=== PATIENT | male | born 1975 | race African-American/Black ===

== ENCOUNTER 2019-07-25 19:05 | Emergency (ER) | payer MEDICAID ==
[~2019-07-25] VITALS: Ht 190.5 cm; Wt 109.9 kg
[2019-07-25 20:22] VITALS: BP 161/65
--- NOTE | 2019-07-25 20:44 | RAD ---
Study: CR CHEST PA LATERAL Indication: Cough. Comparison: None. Findings: No lobar consolidation, pleural effusion or pneumothorax. The cardia mediastinal silhouette is within normal limits for size. Mild symmetric prominence of the central vasculature. Impression: 1. No localized airspace infiltrate to suggest a typical pneumonia. 2. Mild symmetric prominence of the central vasculature which could be within the broad range of normal for this patient but recommend correlation for any symptoms or history of pulmonary hypertension. Electronically signed by: CHRISTIAN WYNNE MD (07/25/2019 8:41 PM) [id number]
--- NOTE | 2019-07-25 21:18 | PHYS DOC ---
Past Medical History Past Medical History: GERD Past Surgical History: No Surgical History Smoking Status: Never Smoker Alcohol Use: Rarely General Adult EDM: Chief Complaint: ASTHMA HPI: HPI: Patient is a 43 year old male with a history of acid reflux, seasonal allergies, possible asthma, who presents to the ED today complaining of shortness of breath for 3 months. Patient states she was seen by her own doctor and was started on albuterol treatments which have helped. He states symptoms still recur especially after exposure to certain environmental agents including tires. Patient reports during the lockdown he was staying with a girlfriend, his symptoms are better, when the lockdown ended he moved into his own house, he states symptoms started reoccurring, he states he tried cleaning the house including shampooing the carpets but the symptoms are still re-occurring. He reports he was using fdyo-vfi-zphfixe allergy medicine but realized one of the ingredients in the medicine could make him have palpitations. He states he occasionally has palpitation also after using nebulizer treatments. Patient denies any fever. He is requesting an asthma test in the ED Review of Systems: Review of Systems: Constitutional: Denies fever or chills. [] Eyes: Denies change in visual acuity. [] HENT: Denies nasal congestion or sore throat. [] Respiratory: Shortness of breath Cardiovascular: Denies chest pain or edema. [] GI: Denies abdominal pain, nausea, vomiting, bloody stools or diarrhea. [] : Denies dysuria. [] Musculoskeletal: Denies back pain or joint pain. [] Integument: Denies rash. [] Neurologic: Denies headache, focal weakness or sensory changes. [] Endocrine: Denies polyuria or polydipsia. [] Lymphatic: Denies swollen glands. [] Psychiatric: Denies depression or anxiety. [] Heart Score: Risk Factors: Risk Factors: DM, Current or recent (<one month) smoker, HTN, HLP, family history of CAD, obesity. Risk Scores: Score 0 - 3: 2.5% MACE over next 6 weeks - Discharge Home Score 4 - 6: 20.3% MACE over next 6 weeks - Admit for Clinical Observation Score 7 - 10: 72.7% MACE over next 6 weeks - Early Invasive Strategies Allergies: Allergies: Allergies Coded Allergies Type Severity Reaction Last Updated Verified naproxen Allergy Intermediate HIVES 07/25/19 Yes Physical Exam: PE: Constitutional: Well developed, well nourished, no acute distress, non-toxic appearance. [] HENT: Normocephalic, atraumatic, bilateral external ears normal, oropharynx moist, no oral exudates, nose normal. [] Eyes: PERRLA, EOMI, conjunctiva normal, no discharge. [] Neck: Normal range of motion, no tenderness, supple, no stridor. [] Cardiovascular:Heart rate regular rhythm, no murmur [] Lungs & Thorax: Bilateral breath sounds clear to auscultation [] Abdomen: Bowel sounds normal, soft, no tenderness, no masses, no pulsatile masses. [] Skin: Warm, dry, no erythema, no rash. [] Back: No tenderness, no CVA tenderness. [] Extremities: No tenderness, no cyanosis, no clubbing, ROM intact, no edema. [] Neurologic: Alert and oriented X 3, normal motor function, normal sensory function, no focal deficits noted. [] Psychologic: Affect normal, judgement normal, mood normal. [] Current Patient Data: Vital Signs: Vital Signs Date Time Temp Pulse Resp B/P (MAP) Pulse Ox O2 Delivery O2 Flow Rate FiO2 07/25/19 20:22 59 161/65 (97) 98 Room Air 07/25/19 19:37 99.0 20 99.0 EKG: EKG: [] Radiology/Procedures: Radiology/Procedures: []PROCEDURE: CHEST PA & LATERAL Study: CR CHEST PA LATERAL Indication: Cough. Comparison: None. Findings: No lobar consolidation, pleural effusion or pneumothorax. The cardia mediastinal silhouette is within normal limits for size. Mild symmetric prominence of the central vasculature. Impression: 1. No localized airspace infiltrate to suggest a typical pneumonia. 2. Mild symmetric prominence of the central vasculature which could be within the broad range of normal for this patient but recommend correlation for any symptoms or history of pulmonary hypertension. Electronically signed by: CHRISTIAN WYNNE MD (07/25/2019 8:41 PM) [id number] DICTATED and SIGNED BY: CHRISTIAN WYNNE MD DATE: 07/25/192040 Course & Med Decision Making: Course & Med Decision Making Pertinent Labs and Imaging studies reviewed. (See chart for details) This is a 43-year-old male patient presenting to the ED today complaining of shortness of breath for 3 months. Patient has history of seasonal allergies which seem to trigger his symptoms. His chest x-ray was negative for infiltrate or pneumonia. Noted for possible pulmonary hypertension. Patient has no previous history of hypertension, blood pressure was noted at 160s over 60. I spent an incredible amount of time talking to this patient to figure out what his realistic expectation on today's visit was. Patient is expecting us to do a test to diagnose him with asthma. He was seen by his own doctor a while back and was started on asthma treatments specifically breathing treatments but states they did not do any test to dx him with asthma. He is on yhyn-jzo-ggvjbos allergy medicine. Encourage patient to continue taking this medicine, OTC allergy medicine and prednisone for 5 days and gave him a pulmonary doctor for follow up and recommended allergy testing. He wanted somebody to follow-up for acid reflux. I gave him Dr. Mcclendon's number. His O2 sats have been 98% on room air. He is in no distress. He is actually a very well muscled exercise man. [employer] Disclaimer: [employer] Disclaimer: This electronic medical record was generated, in whole or in part, using a voice recognition dictation system. Departure Departure Impression: Primary Impression: Asthma Qualified Codes: J45.40 - Moderate persistent asthma, uncomplicated Additional Impression: Seasonal allergies Disposition: 01 HOME, SELF-CARE Condition: STABLE Referrals: NO PCP (PCP) MARE AGUILAR MD follow up for asthma JONATHAN MCCLENDON MD follow up in 1-2 weeks for acid reflex Patient Instructions: Allergies, Generic, Asthma, Adult Additional Instructions: You were evaluated in the emergency room, your chest x-ray was negative for pne umonia. Your oxygen saturation is very good at 98% on room air. We encourage you to continue taking xogq-mog-haxwdkx allergy medicine. We also put you on prednisone for 5 days and encourage you to continue doing breathing treatments at home as needed for asthma symptoms including shortness of breath and chest tightness. Her blood pressure is running slightly high in the 160s over 60. Normal blood pressure is less than 120/80. Follow-up with your primary care doctor for this. Continue to exercise as needed and tolerated. Scripts Albuterol Sulfate (Proventil Hfa) 6.7 Gm Hfa.aer.ad 1 PUFF INH PRN Q6HRS PRN for SHORTNESS OF BREATH, #1 INHALER Prov: DIPAK MONTEMAYOR APRN 07/25/19 Prednisone (PREDNISONE) 50 Mg Tablet 1 TAB PO DAILY, #5 TAB Prov: DIPAK MONTEMAYOR APRN 07/25/19 Justicifation of Admission Dx: Justifications for Admission: Justification of Admission Dx: N/A DIPAK MONTEMAYOR APRN Jul 25, 2019 21:18
[2019-07-25] MEDS ORDERED: PROVENTIL HFA6.7 G2 INH (21:26)
[2019-07-25] MEDS ORDERED: PRED50TA PO (21:26)
== END 2019-07-25 21:33 | disposition home or self-care (01) ==
LOC: ER 19:05
DX: J45.40 Moderate persistent asthma, uncomplicated (principal); K21.9 Gastro-esophageal reflux disease without esophagitis; Z88.5 Allergy status to narcotic agent
CPT/HCPCS: 71046; 99283

== ENCOUNTER 2019-07-31 12:49 | Emergency (ER) | payer MEDICAID ==
[~2019-07-31] VITALS: Ht 190.5 cm; Wt 107.0 kg
[~2019-07-31 12:49] MED LIST: PRED50TA PO; PROVENTIL HFA6.7 G2 INH
--- NOTE | 2019-07-31 13:12 | PHYS DOC ---
Past Medical History Past Medical History: GERD (BRANDON NGUYEN APRN) Past Surgical History: No Surgical History (BRANDON NGUYEN APRN) Smoking Status: Never Smoker Alcohol Use: Rarely (BRANDON NGUYEN APRN) General Adult EDM: Chief Complaint: Palpitations HPI: HPI: Patient is a 43 year old male presents to the emergency room for evaluation of palpitations and "racing heart rate". He reports symptoms last night while watching TV. States made him feel short of breath. He reports again today started having palpitations, denies chest pain or shortness of air. Denies current supplement use. States he feels like his "heart is tired". (BRANDON NGUYEN APRN) Review of Systems: Review of Systems: Constitutional: Denies fever or chills. [] Eyes: Denies change in visual acuity. [] HENT: Denies nasal congestion or sore throat. [] Respiratory: Denies cough or shortness of breath. [] Cardiovascular: Denies chest pain or edema. [] GI: Denies abdominal pain, nausea, vomiting, bloody stools or diarrhea. [] : Denies dysuria. [] Musculoskeletal: Denies back pain or joint pain. [] Integument: Denies rash. [] Neurologic: Denies headache, focal weakness or sensory changes. [] Endocrine: Denies polyuria or polydipsia. [] Lymphatic: Denies swollen glands. [] Psychiatric: Denies depression or anxiety. [] (BRANDON NGUYEN APRN) Heart Score: HEART Score for Chest Pain: HEART Score for Chest Pain Response (Comments) Value History Slighlty/Non-Suspicious 0 ECG Normal 0 Age < 45 0 Risk Factors No Risk Factors 0 Troponin < Normal Limit 0 Total 0 Risk Factors: Risk Factors: DM, Current or recent (<one month) smoker, HTN, HLP, family history of CAD, obesity. Risk Scores: Score 0 - 3: 2.5% MACE over next 6 weeks - Discharge Home Score 4 - 6: 20.3% MACE over next 6 weeks - Admit for Clinical Observation Score 7 - 10: 72.7% MACE over next 6 weeks - Early Invasive Strategies (BRANDON NGUYEN APRN) Allergies: Allergies: Allergies Coded Allergies Type Severity Reaction Last Updated Verified naproxen Allergy Intermediate HIVES 07/25/19 Yes (BRANDON NGUYEN APRN) Physical Exam: PE: Constitutional: Well developed, well nourished, no acute distress, non-toxic appearance. [] HENT: Normocephalic, atraumatic, bilateral external ears normal, oropharynx moist, no oral exudates, nose normal. [] Eyes: PERRLA, EOMI, conjunctiva normal, no discharge. [] Neck: Normal range of motion, no tenderness, supple, no stridor. [] Cardiovascular:Heart rate regular rhythm, no murmur [] Lungs & Thorax: Bilateral breath sounds clear to auscultation [] Skin: Warm, dry, no erythema, no rash. [] Back: No tenderness, no CVA tenderness. [] Extremities: No tenderness, no cyanosis, no clubbing, ROM intact, no edema. [] Neurologic: Alert and oriented X 3, normal motor function, normal sensory function, no focal deficits noted. [] Psychologic: Affect normal, judgement normal, mood normal. [] (BRANDON NGUYEN APRN) EKG: EKG: [EKG 1314 rate 67 Sinus rhythm, No STEMI, read by EP and myself] (BRANDON NGUYEN APRN) Radiology/Procedures: Radiology/Procedures: [PROCEDURE: PORTABLE CHEST 1V EXAM: PORTABLE CHEST 1V 07/31/2019 12:52 PM CLINICAL INDICATION:Palpitations COMPARISON:Chest radiograph 07/25/2019 TECHNIQUE: AP upright view of the chest FINDINGS: Cardiomediastinal silhouette is unchanged. The lungs are well-expanded and clear. No focal opacity, pleural effusion, or pneumothorax. No acute osseous abnormality. IMPRESSION:No acute cardiopulmonary abnormality. Electronically signed by: Rizwana Carson MD (07/31/2019 1:20 PM) [id number] ] (BRANDON NGUYEN APRN) Course & Med Decision Making: Course & Med Decision Making Pertinent Labs and Imaging studies reviewed. (See chart for details) [Vital signs stable, EKG sinus rhythm with rate 67, no STEMI, troponin n egative,heart score 0, low risk ACS, patient without complaints of chest pain. Heart rate remained stable in 60s during time in the emergency room. Recommend close follow-up with his primary care doctor, return to ER for new or worsening symptoms.] (BRANDON NGUYEN APRN) [employer] Disclaimer: [employer] Disclaimer: This electronic medical record was generated, in whole or in part, using a voice recognition dictation system. 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 I was available for consultation as needed during the patient's visit in the emergency department. I agree with the clinical impression, plan, and disposition. (CAROLINE MELGAR DO) BRANDON NGUYEN APRN Jul 31, 2019 13:12 CAROLINE MELGAR DO Jul 31, 2019 18:46
--- NOTE | 2019-07-31 13:23 | RAD ---
EXAM: PORTABLE CHEST 1V 07/31/2019 12:52 PM CLINICAL INDICATION:Palpitations COMPARISON:Chest radiograph 07/25/2019 TECHNIQUE: AP upright view of the chest FINDINGS: Cardiomediastinal silhouette is unchanged. The lungs are well-expanded and clear. No focal opacity, pleural effusion, or pneumothorax. No acute osseous abnormality. IMPRESSION:No acute cardiopulmonary abnormality. Electronically signed by: Rizwana Carson MD (07/31/2019 1:20 PM) [id number]
[2019-07-31 13:24] LABS: BASO % 1 % (0-3); EOS % 0 % (0-3); HEMATOCRIT 46.4 % (39.0-53.0); LYMPH # 1.1 x10^3/uL (1.0-4.8); LYMPH % 26 % (24-48); MEAN CORPUSCULAR HEMOGLOBIN 30 pg (25-35); MEAN CORPUSCULAR HGB CONC 35 g/dL (31-37); MEAN CORPUSCULAR VOLUME 87 fL (79-100); MONO # 0.3 x10^3/uL (0.0-1.1); MONO % 8 % (0-9); NEUT # 2.9 x10^3/uL (1.8-7.7); NEUT % 66 % (31-73); PLATELET COUNT 263 x10^3/uL (140-400); RED BLOOD COUNT 5.32 x10^6/uL (4.30-5.70); RED CELL DISTRIBUTION WIDTH 14.5 % (11.5-14.5); WHITE BLOOD COUNT 4.3 x10^3/uL (4.0-11.0)
[2019-07-31 13:30] LABS: CALCIUM 8.5 mg/dL (8.5-10.1); CREATININE 1.2 mg/dL (0.7-1.3); POTASSIUM 4.5 mmol/L (3.5-5.1)
[2019-07-31 13:36] LABS: ALBUMIN 3.7 g/dL (3.4-5.0); ALBUMIN/GLOBULIN RATIO 0.9 (1.0-1.7); MAGNESIUM 1.5 mg/dL (1.8-2.4); TOTAL BILIRUBIN 1.5 mg/dL (0.2-1.0); TOTAL PROTEIN 7.6 g/dL (6.4-8.2)
--- NOTE | 2019-07-31 13:39 | EKG ---
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
[2019-07-31 14:33] VITALS: BP 144/65
== END 2019-07-31 14:54 | disposition home or self-care (01) ==
LOC: ER 12:49
DX: R00.2 Palpitations (principal); K21.9 Gastro-esophageal reflux disease without esophagitis; Z88.5 Allergy status to narcotic agent
CPT/HCPCS: 36415; 71045; 80053; 83735; 84484; 85025; 93005; 99285-25